=== PATIENT | female | born 1965 | race Caucasian/White ===

== ENCOUNTER → 2020-01-03 | Outpatient (CLI) | payer BC ==
--- NOTE | 2020-01-03 16:06 | KCIC ---
EXAM: Left shoulder, 3 views. HISTORY: Pain. COMPARISON: None. FINDINGS: 3 views of the left shoulder obtained. There is no fracture, dislocation or subluxation. There is a bone island within the humeral head. There is a suspected tiny joint loose body or calcification involving the rotator cuff. IMPRESSION: 1. No acute osseous finding. 2. Tiny suspected left shoulder joint loose body or calcification involving the rotator cuff. Electronically signed by: Shivani Vasquez MD (01/03/2020 4:04 PM) [id number]
== END ==
LOC: KCIC 15:19
PROVIDERS: ATTEND Family Medicine
DX: M25.512 Pain in left shoulder (principal)
CPT/HCPCS: 73030